=== PATIENT | female | born 1950 | race Two or more races ===

== ENCOUNTER 2020-02-29 15:28 | Inpatient (IN) | payer OTHER ==
[~2020-02-29] VITALS: Ht 152.4 cm; Wt 59.4 kg
[2020-02-29] MEDS ORDERED: CITA20TA19 PO (15:58)
[2020-02-29] MEDS ORDERED: ARIP15TA3 PO (15:58)
[2020-02-29 16:09] LABS: BASOPHILS # (AUTO) 0.1 K/uL (0.0-8.0); EOSINOPHILS % (AUTO) 0.2 % (0.0-7.0); HEMATOCRIT 42.9 % (31.2-41.9); LYMPHOCYTES # (AUTO) 1.5 K/uL (20.0-40.0); LYMPHOCYTES % (AUTO) 18.3 % (20.5-51.5); MEAN CORPUSCULAR HEMOGLOBIN 29.7 uug (24.7-32.8); MEAN CORPUSCULAR HGB CONC 33 g/dL (32.3-35.6); MEAN CORPUSCULAR VOLUME 90.9 fL (75.5-95.3); MONOCYTES # (AUTO) 0.5 K/uL (2.0-10.0); MONOCYTES % (AUTO) 5.6 % (0.0-11.0); NEUTROPHILS # (AUTO) 6.1 K/uL (1.8-8.9); NEUTROPHILS % (AUTO) 74.9 % (38.5-71.5); PLATELET COUNT (AUTO) 205 K/uL (179-408); RED BLOOD CELL COUNT(AUTO) 4.72 MIL/uL (3.63-4.92); WHITE BLOOD COUNT (AUTO) 8.1 K/uL (3.8-11.8)
[2020-02-29 16:20] LABS: CARBON DIOXIDE 26 mmol/L (21-32); CHLORIDE 105 mmol/L (98-107); CREATININE 0.9 mg/dL (0.6-1.3); GLUCOSE 101 mg/dL (74-106); POTASSIUM 3.5 mmol/L (3.5-5.1); UREA NITROGEN, BLOOD 14 mg/dL (7-18)
[2020-02-29 16:23] LABS: ETHANOL < 3 MG/DL (0-0)
[2020-02-29 16:26] LABS: ALANINE AMINOTRANSFERASE 36 U/L (14-59); ALKALINE PHOSPHATASE 79 U/L (50-136); ASPARTATE AMINOTRANSFERASE 24 U/L (15-37); BILIRUBIN,DIRECT 0.1 mg/dL (0.0-0.2); BILIRUBIN,TOTAL 0.5 mg/dL (0.2-1.0); TOTAL PROTEIN, SERUM 8.2 g/dL (6.4-8.2)
[2020-02-29 16:29] LABS: ACETAMINOPHEN < 2.0 ug/mL (10-30)
[2020-02-29] MEDS ORDERED: ASPIRIN EC 81 MG TABLET.DR PO SCH (18:30)
--- NOTE | 2020-02-29 19:00 | NUR ---
for aspirin tab & repeat troponin/COVID-19 "fast" results before admitting to floor, endorsed to 7pm nurse
[2020-02-29] MEDS ORDERED: ASPIRIN EC 81 MG TABLET.DR PO ONE (19:08)
--- NOTE | 2020-02-29 19:46 | NUR ---
troponin collected and handed to Blake in the lab.
--- NOTE | 2020-02-29 20:21 | NUR ---
EPIC PAGED, AWAITING CALL BACK FROM CELY HOUSTON NP
--- NOTE | 2020-02-29 20:32 | NUR ---
Pt. admitted to [facility] , under care of Dr. BEAN AND CELY HOUSTON PLATFORM SUPERVISOR Belongs List completed.
[2020-02-29] MEDS ORDERED: MAG HYDROX/AL HYDROX/SIMETH 30 ML LIQUID UDC PO PRN (21:30)
[2020-02-29] MEDS ORDERED: ACETAMINOPHEN 325 MG TABLET PO PRN (21:30)
[2020-02-29] MEDS ORDERED: BLOOD SUGAR DIAGNOSTIC 1 EACH STRIP VI ONE (21:30)
[2020-02-29] MEDS ORDERED: LORAZEPAM 0.5 MG TABLET PO PRN (21:30)
[2020-02-29] MEDS ORDERED: MAGNESIUM HYDROXIDE 30 ML LIQUID UDC PO PRN (21:30)
[2020-02-29] MEDS ORDERED: TEMAZEPAM 7.5 MG CAPSULE PO PRN (21:30)
[2020-02-29 22:20] VITALS: BP 157/77
--- NOTE | 2020-02-29 22:34 | NUR ---
Admission Note: 70 yr old female brought to MHU from ER via wheel chair via staff. 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 According to the hold, patient lives at home with patient has been wandering off at all hours of the night, has poor insight and impaired judgment. Upon admission pt is A/O X1 to self only, however staff was unable to perform assessment due to her refusing to answer our admission questions, patient mad statements in Russian leave me alone, and no, I dont know anythingVS stable, no c/o pain. Admission process consents were also declined. was notified of admission, he stated that patient stopped taking her medication in 2018 because she stopped hearing voices for six years. Patient according to the began to have auditory hallucinations back in 2011 after a traumatic event. Patient Rights handbook and Advisement given to Pt, rights and unit rules/expectations explained. Pt oriented to the unit, the phone, the restrooms, and her room, Pt will need reinforcement d/t confusion. Q 15 minute rounds initiated for safety.
--- NOTE | 2020-02-29 22:35 | NUR ---
PT NOTED TO HAVE OLD SURGICAL SCAR ON HER ABDOMEN AND PT HAD SCAB ON HER RIGHT KNEE. WHEN STAFF ASKED WHY DOES SHE HAVE SCAR ON HER ABDOMEN PT CONFUSED AND SAID SHE DOESN'T KNOW. PT BELONGINGS ON THE SAFE CABINET. PT PACING AND STANDING ON THE HALLWAY AND ON HER ROOM. WILL CONTINUE TO MONITOR.
--- NOTE | 2020-03-01 06:46 | NUR ---
PT SLEPT 5 h and 30minutes. PT IN NO ACUTE DISTRESS. PT WAS GIVEN ATIVAN AT 2146H FOR RESTLESSNESS AND ANXIETY. PT ALSO GIVEN TYLENOL AT 2146H L FOR GENERALIZED PAIN. PT TOLERATED IT WELL PT BLOOD SUGAR WAS 95. SAFETY AND COMFORT PROVIDED. WILL ENDORSE TO INCOMING NURSE FOR CONTINUITY OF CARE,
[2020-03-01 07:30] VITALS: BP 142/69
[2020-03-01] MEDS: ASPIRIN 81 MG TAB.CHEW PO SCH (08:25)
[2020-03-01 08:51] LABS: BILIRUBIN,TOTAL 0.6 mg/dL (0.2-1.0); CREATININE 0.7 mg/dL (0.6-1.3); POTASSIUM 3.5 mmol/L (3.5-5.1); TOTAL PROTEIN, SERUM 7.5 g/dL (6.4-8.2)
--- NOTE | 2020-03-01 08:58 | NUR ---
GPS: Received patient AOx2, quiet , i her room, patient is quiet , isolative , ate breakfast, will continue monitor
--- NOTE | 2020-03-01 09:56 | NUR ---
JENN Initial Discharge Plan: Patient currently resides at home [address] [address] ([phone]) with Omega ([phone]). Per patient and , patient will return home upon discharge. JENN will continue to work with patient, family, and MD to ensure a safe and proper discharge plan.
--- NOTE | 2020-03-01 09:57 | NUR ---
JENN Family Contact: JENN spoke with patient's Omega ([phone]) who provided collateral information. JENN discussed treatment plan and discharge planning with Omega. Omega stated that would like the patient to return back home when she is ready for discharge and that he will provide transportation and take her back home.
--- NOTE | 2020-03-01 10:27 | NUR ---
Social Work Firearms Report (DOJ): Tennis Camp Instructor completed and submitted a DOJ firearms report for 5150 danger to self and grave disability certification. A copy of report has been placed in patient chart.
[2020-03-01 13:00] VITALS: BP 126/81
--- NOTE | 2020-03-01 13:07 | NUR ---
UR Note: corrections caseworker left a voicemail for Sil HAMMOND Soiled Linen Distributor at [place] ([phone]) to provide clinical information and request authorization number information. Waiting for a call back.
--- NOTE | 2020-03-01 16:05 | NUR ---
UR Note: Authorization # [id number] Sil HAMMOND Software Release Engineer at [place] ([phone]) stated that patient is authorized for 7 days and review is due on Friday March 06, 2020.
--- NOTE | 2020-03-01 18:03 | NUR ---
patient remain isolative and withdrawn, patient poor appetite, patient in no distress
[2020-03-01] MEDS: ATORVASTATIN 20 MG TABLET PO SCH (20:04)
[2020-03-01] MEDS: ARIPIPRAZOLE 10 MG TABLET PO SCH (20:04)
[2020-03-01 20:57] VITALS: BP 118/70
--- NOTE | 2020-03-01 22:29 | NUR ---
Received patient in bed, AAO x2. Pleasant upon approach. Calm and cooperative. No behavioral issues. Compliant with medication. Continue to monitor.
[2020-03-02] MEDS ORDERED: ASPIRIN EC 81 MG TABLET.DR PO SCH
[2020-03-02 07:30] VITALS: BP 131/67
[2020-03-02] MEDS: ASPIRIN 81 MG TAB.CHEW PO SCH (08:25)
--- NOTE | 2020-03-02 14:47 | NUR ---
JENN Individual Therapy Note: SW met with patient for brief individual counseling to address patient's neglect os self-care, bathing and grooming. Patient presents with depressed mood and flat affect. Patient has been poor appetite and does not engage in group. SW encouraged patient to join group activities at least once daily and be more visible on the unit. Patient agreed.
--- NOTE | 2020-03-02 15:25 | NUR ---
Received Pt in bed, AAO x2, no acute distress noted, Kenyan speaking. Pleasant upon approach. Calm and cooperative with taking medications. No behavioral issues. Able to make needs known. Remained isolating throughout most of the shift. Will continue to monitor
[2020-03-02 16:00] VITALS: BP 140/64
[2020-03-02 20:00] VITALS: BP 139/64
[2020-03-02] MEDS: ATORVASTATIN 20 MG TABLET PO SCH (21:04)
[2020-03-02] MEDS: ARIPIPRAZOLE 10 MG TABLET PO SCH (21:04)
--- NOTE | 2020-03-03 06:38 | NUR ---
Patient sleeping intermittently, easily awaking to verbal response. patient calm and co- opertive. Compliant with medications as ordered. slept for 8 hrs during the shift.
[2020-03-03 07:30] VITALS: BP 147/72
[2020-03-03] MEDS: ASPIRIN 81 MG TAB.CHEW PO SCH (08:00)
[2020-03-03 16:11] VITALS: BP 130/67
[2020-03-03 17:47] LABS: *BILIRUBIN,URIN NEGATIVE (NEGATIVE); *BLOOD, URINE NEGATIVE (NEGATIVE); *CLARITY,URINE CLEAR (CLEAR); *COLOR,URINE YELLOW (YELLOW); *KETONES,URINE NEGATIVE (NEGATIVE); *UROBILINOGEN,URINE 0.2 E.U./dl (NORMAL); LEUKOCYTE ESTERASE ,URINE NEGATIVE (NEGATIVE); NITRITE, URINE NEGATIVE (NEGATIVE); UGLUCOSE NEGATIVE (NEGATIVE)
--- NOTE | 2020-03-03 17:51 | NUR ---
remained isolated most of the shift, stayed in her room, appropriate behaviour upon approach, no agitation, denied suicidal behavior, continue to monitor for safety per facility protocol
[2020-03-03 20:13] VITALS: BP 125/68
[2020-03-03] MEDS: ATORVASTATIN 20 MG TABLET PO SCH (20:45)
[2020-03-03] MEDS: ARIPIPRAZOLE 10 MG TABLET PO SCH (20:45)
[2020-03-04 07:30] VITALS: BP 127/52
[2020-03-04] MEDS: ASPIRIN 81 MG TAB.CHEW PO SCH (08:05)
--- NOTE | 2020-03-04 08:50 | NUR ---
GPS: received patient Aox1-2, patient about to eat her breakfast , patient quiet, isolative , withdrawn, patient responding to internal stimuli, patient no distress, denies Si and HI at this time, will continue monitor
[2020-03-04 16:00] VITALS: BP 142/66
--- NOTE | 2020-03-04 18:13 | NUR ---
patient continously isolative, no distress at this time,
[2020-03-04 20:00] VITALS: BP 145/72
[2020-03-04] MEDS: ARIPIPRAZOLE 10 MG TABLET PO SCH (21:24)
[2020-03-04] MEDS: ATORVASTATIN 20 MG TABLET PO SCH (21:25)
[2020-03-05 07:30] VITALS: BP 157/84
[2020-03-05] MEDS: ASPIRIN 81 MG TAB.CHEW PO SCH (08:55)
--- NOTE | 2020-03-05 14:59 | NUR ---
JENN Individual Therapy Note: SW met with patient for brief individual counseling to address patient's neglect of self-care, bathing and grooming. Patient presents with withdrawn mood and congruent affect. SW attempted to engage with patient, however patient asked this racebook writer to go away and wanted to rest.
[2020-03-05 15:36] VITALS: BP 152/76
[2020-03-05 20:00] VITALS: BP 155/72
[2020-03-05] MEDS: ARIPIPRAZOLE 10 MG TABLET PO SCH (20:45)
[2020-03-05] MEDS: ATORVASTATIN 20 MG TABLET PO SCH (20:45)
[2020-03-06 07:30] VITALS: BP 129/57
[2020-03-06] MEDS: ASPIRIN 81 MG TAB.CHEW PO SCH (08:08)
--- NOTE | 2020-03-06 08:35 | NUR ---
UR Note: Authorization # [id number] Sil HAMMOND Quality Control Assessor at [place] ([phone]). This manual writer sent patient's H & P, progress notes, and medication list.
--- NOTE | 2020-03-06 13:21 | NUR ---
UR Note: Authorization # [id number] Sil Fruit Thinner at [place] ([phone]). This also left verbal clinicals in Sil's voicemail and has not received a call back yet to confirm authorization.
--- NOTE | 2020-03-06 15:38 | NUR ---
UR Note: Authorization # [id number] Sil UM Specimen Accessioner at [place] ([phone]). Received call back from Sil who stated that patient is authorized for two days until March 08.
--- NOTE | 2020-03-06 15:50 | NUR ---
Social Work Coordination of Care: Patient will be reassigned a (psychiatrist intake evaluation) at [address] [address] ([phone]) on March 09 at 10AM and spoke with officer of the dav T[place] who arranged this appointment.
--- NOTE | 2020-03-06 15:58 | NUR ---
Social Work Family Contact: appliance worker spoke with patient's Omega ([phone]) who is able to pick patient up at 1PM.
[2020-03-06 16:34] VITALS: BP 133/64
[2020-03-06] MEDS: ATORVASTATIN 20 MG TABLET PO SCH (20:33)
[2020-03-06] MEDS: ARIPIPRAZOLE 10 MG TABLET PO SCH (20:33)
[2020-03-06 20:36] VITALS: BP 173/68
--- NOTE | 2020-03-07 06:31 | NUR ---
Pt slept 9.0 hrs. No PRNs given last night. Refused shower.
[2020-03-07 07:30] VITALS: BP 124/60
[2020-03-07] MEDS: ASPIRIN 81 MG TAB.CHEW PO SCH (11:02)
[2020-03-07 16:00] VITALS: BP 143/66
[2020-03-07 20:00] VITALS: BP 148/72
[2020-03-07] MEDS: ARIPIPRAZOLE 10 MG TABLET PO SCH (20:15)
[2020-03-07] MEDS: ATORVASTATIN 20 MG TABLET PO SCH (20:15)
--- NOTE | 2020-03-08 07:07 | NUR ---
Patient slept for approx 4 hrs through the night. she refused "sleeping pill". She stated, "I am fine". continue withdrawn, hyper-confucianism and guarded. will continue to monitor.
[2020-03-08 07:30] VITALS: BP 184/83
--- NOTE | 2020-03-08 08:00 | NUR ---
Social Work Discharge Note: Patient will be discharged back home [address] [facility], [place] [address]. Patients , Omega ([phone]) will provide transportation for the patient back home at 1PM. Patients Omega ([phone]) is aware and agreeable with discharge plan. Patient is aware and agreeable to returning back home. Patient appears alert and oriented x1-2. Patient will be reassigned a (psychiatrist intake evaluation) at [facility] [address] [place] [address] ([phone]) on March 09 at 10AM. Patient is referred to [address] [address] ([phone]) for primary care physician follow ups and has a telehealth appointment scheduled on March 15, 2020 at 10:45am with JENNIFER Arroyo. Patient presents with euthymic mood and congruent affect.
[2020-03-08] MEDS: ASPIRIN 81 MG TAB.CHEW PO SCH (09:18)
[2020-03-08] MEDS ORDERED: METOPROLOL TARTRATE 25 MG TABLET PO SCH (09:45)
[2020-03-08 11:11] VITALS: BP 184/83
--- NOTE | 2020-03-08 13:00 | NUR ---
Gps/Card Grinder Helper- Dr Castaneda was called if ok to discharge patient today as per his noted from yesterday, was clarified . Informed of patient behavior, noted sitting at the edge of bed, facing the wall from 0800 thills now, when approched patient able to repond appropriately but goes right back to the same posture Patient ok to dc. today. Gaming Table Operator arranged for her follow ups with her Primary Medical Doctor/LINECASTING MACHINE KEYBOARD OPERATOR Nani. All belongings given back to patient. Discharged instructions given to Omega, both patient and verbalized understanding.
== END 2020-03-08 13:30 | disposition home or self-care (01) | DRG 885 ==
LOC: ER 15:33 → GPS 20:48
PROVIDERS: ADMIT Psychiatry & Neurology Psychiatry
DX: F29 Unspecified psychosis not due to a substance or known physiological condition (principal); I21.4 Non-ST elevation (NSTEMI) myocardial infarction; R45.851 Suicidal ideations; F23 Brief psychotic disorder; Z86.73 Personal history of transient ischemic attack (TIA), and cerebral infarction without residual deficits; F03.90 Unspecified dementia, unspecified severity, without behavioral disturbance, psychotic disturbance, mood disturbance, and anxiety; F32.9 Major depressive disorder, single episode, unspecified; Z73.6 Limitation of activities due to disability; I10 Essential (primary) hypertension; R73.03 Prediabetes
CPT/HCPCS: 36415; 70030-TC; 70450; 71045; 80329; 85025; 85730; 87086; 93005; 93307; A4663; G0480; G0480-TC